=== PATIENT | female | born 1995 | race African-American/Black ===

== ENCOUNTER 2024-09-22 06:09 | Emergency (ER) | payer BC ==
[~2024-09-22] VITALS: Ht 165.1 cm; Wt 49.9 kg
[2024-09-22 06:34] VITALS: TEMP 98.3
[2024-09-22 06:38] VITALS: BP 122/70; O2SAT 97
[2024-09-22] MEDS ORDERED: LIDO28.310 TP (06:44)
== END 2024-09-22 06:49 | disposition home or self-care (01) ==
LOC: ER 06:16
DX: K64.4 Residual hemorrhoidal skin tags (principal); Z60.2 Problems related to living alone